=== PATIENT | male | born 1965 | race Asian ===

== ENCOUNTER 2024-02-09 16:58 | Inpatient (IN) | payer BC ==
[2024-02-09 19:08] VITALS: BMI 23.0
[2024-02-09] MEDS ORDERED: Dextrose 5% in Water 1,000 ML IV PRN (20:02)
[2024-02-09] MEDS ORDERED: Glucagon 1 MG/ML KIT IM PRN (20:02)
[2024-02-09] MEDS ORDERED: Dextrose 50% Abboject 50 ML SYRINGE SLOW IVP PRN (20:02)
[2024-02-09] MEDS ORDERED: Bisacodyl 5 MG TAB PO PRN (20:08)
[2024-02-09] MEDS ORDERED: Sodium Chloride 0.65% Nasal 44 ML BOT EA NARE PRN (20:08)
[2024-02-09] MEDS ORDERED: [UNRECOGNIZED DRUG - REMARK] FS PRN (20:08)
[2024-02-09] MEDS ORDERED: Loratadine 10 MG TAB PO PRN (20:08)
[2024-02-09] MEDS ORDERED: Insulin Lispro 100 UNIT/ML 10 ML VIAL SC PRN (20:08)
[2024-02-09] MEDS ORDERED: Temazepam 15 MG CAP PO PRN (20:08)
[2024-02-09] MEDS ORDERED: traMADol HCl 50 MG TAB PO PRN (20:08)
[2024-02-09] MEDS ORDERED: Artificial Tear Ophth Sol 15 ML BOT EA EYE PRN (20:08)
[2024-02-09] MEDS ORDERED: Moisturizing Cream (Eucerin) 113 GM JAR TOP PRN (20:08)
[2024-02-09] MEDS ORDERED: Loperamide HCl 2 MG CAP PO PRN ×2 (20:08)
[2024-02-09] MEDS ORDERED: Senokot S 8.6-50 MG TAB PO PRN (20:08)
[2024-02-09] MEDS ORDERED: Ondansetron ODT 4 MG TAB PO PRN (20:08)
[2024-02-09] MEDS ORDERED: Ketorolac Tromethamine 30 MG (1 mL) VIAL IVP PRN (20:45)
[2024-02-09] MEDS: cefTRIAXone\\ROCEPHIN 2 GM in Sodium Chloride 0.9% 100 ML IVPB SCH (21:30)
[2024-02-09] MEDS: Lantus 1000 UNITS/10 ML VIAL SC SCH (21:31)
[2024-02-09] MEDS: metroNIDAZOLE 500 MG in Premix 1 BAG IVPB SCH (22:14)
[2024-02-09] MEDS: Sterile Water 10 ML ONE (22:26)
[2024-02-09 23:15] LABS: Hemoglobin A1c 10.8 % (4.0-6.0)
[2024-02-09 23:31] LABS: Strep pneumo Urine Ag NEGATIVE (NEGATIVE)
[2024-02-10] MEDS: Acetaminophen 325 MG TAB PO PRN (00:17)
[2024-02-10 03:56] LABS: #Basophils 0.05 10x3/uL (0.0-0.2); #Eosinophils 0.15 10x3/uL (0.0-0.5); #Neutrophils 10.29 10x3/uL (1.5-8.4); %Basophils 0.4 % (0.0-2.0); %Eosinophils 1.2 % (0.0-6.0); %Lymphocytes 8.9 % (18.0-47.0); %Monocytes 9.3 % (0.0-10.0); %Neutrophils 79.5 % (40.0-75.0); Hematocrit 42.1 % (38.8-50.0); Hemoglobin 13.9 g/dL (13.5-17.5); Mean Corpuscular Hemoglobin 28.5 pg (27.0-33.0); Mean Corpuscular Volume 86.4 fL (81.2-95.1); Mean Platelet Volume 9.3 fL (7.4-10.4); Platelet Count 335 10x3/uL (150-450); RBC Distribution Width 11.5 % (11.5-14.5); Red Blood Cell (RBC) Count 4.87 10x6/uL (4.32-5.72); White Blood Cell (WBC) Count 12.9 10x3/uL (3.5-10.5)
[2024-02-10 04:14] LABS: Vancomycin, Trough Less than 1.1 ug/mL
[2024-02-10 04:15] LABS: Anion Gap 18 mmol/L (10-20); BUN (Urea Nitrogen) 16 mg/dL (8.4-25.7); Calc. Creatinine Clearance 75 mL/min (70-130); Calcium 9.1 mg/dL (7.8-10.44); Carbon Dioxide 20 mmol/L (22-29); Chloride 100 mmol/L (98-107); Estimated GFR 85; Glucose 305 mg/dL (70-105); Potassium 4.4 mmol/L (3.5-5.1); Sodium 134 mmol/L (136-145)
[2024-02-10] MEDS: Insulin Lispro 100 UNIT/ML 10 ML VIAL SC PRN (06:40)
[2024-02-10] MEDS: Enoxaparin 40 MG (0.4 mL) SYRINGE SC SCH (08:54)
[2024-02-10] MEDS: Famotidine 20 MG TAB PO SCH (10:18)
[2024-02-10] MEDS: Lantus 1000 UNITS/10 ML VIAL SC SCH (11:20)
[2024-02-10] MEDS ORDERED: Enoxaparin 40 MG (0.4 mL) SYRINGE SC SCH (21:00)
[2024-02-10] MEDS: cefTRIAXone\\ROCEPHIN 2 GM in Sodium Chloride 0.9% 100 ML IVPB SCH (22:41)
[2024-02-11 04:20] LABS: #Basophils 0.08 10x3/uL (0.0-0.2); #Eosinophils 0.12 10x3/uL (0.0-0.5); #Monocytes 1.24 10x3/uL (0.0-1.1); #Neutrophils 9.42 10x3/uL (1.5-8.4); %Basophils 0.6 % (0.0-2.0); %Lymphocytes 11.6 % (18.0-47.0); %Neutrophils 76.2 % (40.0-75.0); Hematocrit 41.7 % (38.8-50.0); Hemoglobin 13.9 g/dL (13.5-17.5); Mean Corpuscular HGB CONC 33.3 g/dL (32.0-36.0); Mean Corpuscular Hemoglobin 28.8 pg (27.0-33.0); Mean Corpuscular Volume 86.3 fL (81.2-95.1); Mean Platelet Volume 9.4 fL (7.4-10.4); Platelet Count 331 10x3/uL (150-450); RBC Distribution Width 11.5 % (11.5-14.5); Red Blood Cell (RBC) Count 4.83 10x6/uL (4.32-5.72); White Blood Cell (WBC) Count 12.4 10x3/uL (3.5-10.5)
[2024-02-11 04:35] LABS: Anion Gap 19 mmol/L (10-20); BUN (Urea Nitrogen) 15 mg/dL (8.4-25.7); Calc. Creatinine Clearance 99 mL/min (70-130); Carbon Dioxide 18 mmol/L (22-29); Chloride 101 mmol/L (98-107); Estimated GFR 104; Glucose 192 mg/dL (70-105); Potassium 3.8 mmol/L (3.5-5.1); Sodium 134 mmol/L (136-145)
[2024-02-11] MEDS: Lantus 1000 UNITS/10 ML VIAL SC SCH (08:51)
[2024-02-11] MEDS: Azithromycin 500 MG in Sodium Chloride 0.9% 250 ML 250 ML IVPB SCH (11:14)
[2024-02-12 03:44] LABS: #Basophils 0.09 10x3/uL (0.0-0.2); #Eosinophils 0.16 10x3/uL (0.0-0.5); #Monocytes 1.29 10x3/uL (0.0-1.1); #Neutrophils 10.05 10x3/uL (1.5-8.4); %Basophils 0.7 % (0.0-2.0); %Eosinophils 1.2 % (0.0-6.0); %Lymphocytes 13.8 % (18.0-47.0); %Monocytes 9.5 % (0.0-10.0); %Neutrophils 73.8 % (40.0-75.0); Hematocrit 41.8 % (38.8-50.0); Hemoglobin 14.2 g/dL (13.5-17.5); Mean Corpuscular Hemoglobin 28.6 pg (27.0-33.0); Mean Corpuscular Volume 84.3 fL (81.2-95.1); Mean Platelet Volume 9.3 fL (7.4-10.4); Platelet Count 349 10x3/uL (150-450); RBC Distribution Width 11.6 % (11.5-14.5); Red Blood Cell (RBC) Count 4.96 10x6/uL (4.32-5.72); White Blood Cell (WBC) Count 13.6 10x3/uL (3.5-10.5)
[2024-02-12 04:01] LABS: Anion Gap 15 mmol/L (10-20); BUN (Urea Nitrogen) 16 mg/dL (8.4-25.7); Calc. Creatinine Clearance 99 mL/min (70-130); Calcium 9.3 mg/dL (7.8-10.44); Carbon Dioxide 21 mmol/L (22-29); Chloride 101 mmol/L (98-107); Estimated GFR 104; Glucose 175 mg/dL (70-105); Potassium 3.8 mmol/L (3.5-5.1); Sodium 133 mmol/L (136-145)
[2024-02-12] MEDS: Benzonatate 100 MG CAP PO PRN (21:47)
[2024-02-13 04:15] LABS: #Eosinophils 0.12 10x3/uL (0.0-0.5); #Monocytes 1.26 10x3/uL (0.0-1.1); #Neutrophils 8.67 10x3/uL (1.5-8.4); %Basophils 0.8 % (0.0-2.0); %Monocytes 10.7 % (0.0-10.0); %Neutrophils 73.7 % (40.0-75.0); Hematocrit 39.4 % (38.8-50.0); Hemoglobin 13.7 g/dL (13.5-17.5); Mean Corpuscular HGB CONC 34.8 g/dL (32.0-36.0); Mean Corpuscular Hemoglobin 29.2 pg (27.0-33.0); Mean Platelet Volume 9.3 fL (7.4-10.4); Platelet Count 347 10x3/uL (150-450); RBC Distribution Width 11.6 % (11.5-14.5); Red Blood Cell (RBC) Count 4.69 10x6/uL (4.32-5.72); White Blood Cell (WBC) Count 11.8 10x3/uL (3.5-10.5)
[2024-02-13 04:33] LABS: Anion Gap 16 mmol/L (10-20); BUN (Urea Nitrogen) 14 mg/dL (8.4-25.7); Calc. Creatinine Clearance 96 mL/min (70-130); Carbon Dioxide 21 mmol/L (22-29); Chloride 100 mmol/L (98-107); Estimated GFR 103; Glucose 167 mg/dL (70-105); Potassium 3.4 mmol/L (3.5-5.1); Sodium 134 mmol/L (136-145)
[2024-02-13] MEDS: GUAIFENESIN SF SOLN 200 MG/10 ML UDCUP PO PRN (08:18)
[2024-02-13] MEDS: Potassium Chloride 20 MEQ TAB PO SCH (10:00)
[2024-02-14 04:26] LABS: #Basophils 0.11 10x3/uL (0.0-0.2); #Eosinophils 0.13 10x3/uL (0.0-0.5); #Monocytes 1.53 10x3/uL (0.0-1.1); #Neutrophils 8.13 10x3/uL (1.5-8.4); %Basophils 0.9 % (0.0-2.0); %Eosinophils 1.1 % (0.0-6.0); %Lymphocytes 14.7 % (18.0-47.0); %Monocytes 13.1 % (0.0-10.0); %Neutrophils 69.3 % (40.0-75.0); Hematocrit 40.6 % (38.8-50.0); Hemoglobin 13.8 g/dL (13.5-17.5); Mean Corpuscular Volume 85.3 fL (81.2-95.1); Mean Platelet Volume 9.3 fL (7.4-10.4); Platelet Count 339 10x3/uL (150-450); RBC Distribution Width 11.5 % (11.5-14.5); Red Blood Cell (RBC) Count 4.76 10x6/uL (4.32-5.72); White Blood Cell (WBC) Count 11.7 10x3/uL (3.5-10.5)
[2024-02-14 04:45] LABS: Anion Gap 14 mmol/L (10-20); BUN (Urea Nitrogen) 10 mg/dL (8.4-25.7); Calc. Creatinine Clearance 94 mL/min (70-130); Calcium 9.1 mg/dL (7.8-10.44); Carbon Dioxide 24 mmol/L (22-29); Chloride 101 mmol/L (98-107); Estimated GFR 102; Glucose 160 mg/dL (70-105); Potassium 4.2 mmol/L (3.5-5.1); Sodium 135 mmol/L (136-145)
[2024-02-14] MEDS ORDERED: Iopamidol 370 76% 100 ML VIAL ONE (12:00)
[2024-02-14 12:10] VITALS: BP 163/90; TEMP 98.5
== END 2024-02-14 12:10 | disposition left against medical advice (07) | DRG 871 ==
LOC: CSHTELE 18:38 → OBSVTOIN 20:02
PROVIDERS: ADMIT Internal Medicine; ATTEND Internal Medicine
DX: A41.9 Sepsis, unspecified organism (principal); J18.9 Pneumonia, unspecified organism; J96.01 Acute respiratory failure with hypoxia; J90 Pleural effusion, not elsewhere classified; E87.1 Hypo-osmolality and hyponatremia; R65.20 Severe sepsis without septic shock; E11.65 Type 2 diabetes mellitus with hyperglycemia
CPT/HCPCS: 36415; 36416; 71046; 71275; 80048; 80202; 83036; 83605; 84145; 85025; 87070; 87081; 87205; 87449; 93005; 93010; 94760; 94762; J0456; J0696; J1650; J1815; J7050; Q9967